=== PATIENT | female | born 1985 | race Caucasian/White ===

== ENCOUNTER 2016-11-22 19:19 | Emergency (ER) | payer OTHER ==
[2016-11-22 19:28] VITALS: BP 119/100
[2016-11-22] MEDS ORDERED: Bupivacaine 0.5% 10 ML SDV INJECT ONE (19:29)
[2016-11-22] MEDS ORDERED: Lidocaine 1% 10 ML MDV INJECT ONE (19:30)
[2016-11-22] MEDS ORDERED: Lidocaine 1% 10 ML MDV ONE (19:36)
[2016-11-22] MEDS ORDERED: cefTRIAXone 1 GM Vial IM ONE (20:29)
[2016-11-22] MEDS ORDERED: LORazepam 2 MG/ML MDV IM ONE (20:30)
--- NOTE | 2016-11-22 20:42 | EDM.PDOC ---
ED HPI GENERAL MEDICAL PROBLEM - General Chief Complaint: Upper Extremity Injury/Pain Stated Complaint: FIBERGLASS UNDER RIGHT THUMB Time Seen by Provider: 11/22/16 19:25 - History of Present Illness INITIAL COMMENTS - FREE TEXT/NARRATIVE: 31-year-old female presents emergency room with a painful swollen right thumb. This started about 5 days ago the patient was doing some body work on a truck and managed to get some fiber glass splinters into her hand she thought she got most of them out she noticed that her thumb started swelling up a couple days later and this is been progressively getting worse the last couple of days. The patient has been reluctant to come in because she does not like needles. Past medical history is unremarkable denies . Tetanus status is unknown. Right Hand Pain Score (Numeric/FACES): 9 - Related Data Allergies Allergy/AdvReac Type Severity Reaction Status Date / Time Sulfa (Sulfonamide Allergy Swelling Verified 11/22/16 19:31 Antibiotics) Home Meds: Home Meds Acetaminophen/HYDROcodone [[place] 325-5 MG] 1 - 2 tab PO Q6H #15 tablet 11/22/16 [Rx] Doxycycline Hyclate 100 mg PO Q12H #20 capsule 11/22/16 [Rx] Past Medical History - Past Health History Medical/Surgical History: Denies Medical/Surgical History Social & Family History - Tobacco Use Smoking Status *Q: Current Every Day Smoker Years of Tobacco use: 10 Packs/Tins Daily: 1 Used Tobacco, but Quit: No Second Hand Smoke Exposure: No - Caffeine Use Caffeine Use: Reports: Soda - Recreational Drug Use Recreational Drug Use: No Review of Systems - Review of Systems Review Of Systems: See Below Constitutional: Reports: No Symptoms Respiratory: Reports: No Symptoms Cardiovascular: Reports: No Symptoms GI/Abdominal: Reports: No Symptoms ED EXAM, GENERAL - Physical Exam Exam: See Below General Appearance: Anxious, Mild Distress (She has some distress from her anxiety) Neck: Normal Inspection, Supple, Non-Tender, Full Range of Motion Respiratory/Chest: No Respiratory Distress, Lungs Clear, Normal Breath Sounds, No Accessory Muscle Use, Chest Non-Tender Cardiovascular: Regular Rate, Rhythm, No Edema, No Murmur Extremities: Other (Examination of her right hand shows a mildly erythematous right thumb the distal portion beyond the interphalangeal joint is quite swollen especially on the palmar surface this has some ecchymosis and some area of fluctuance on it. Neurovascular status appears to be okay but everything hurts) ED TRAUMA EXTREMITY PROCEDURES - I&D Site: R thumb distal palmar aspect Skin Prep: Chlorhexidine (Hibiciens) Local Anesthesia: Lidocaine: 1% Plain Local Anesthesia - Bupivicaine (Marcaine): 0.5% Plain Local Anesthetic Volume: Other (Total 8 mL were used) Area Incised With: 11 Blade Drainage: Purulent, Bloody, Moderate Amount Probed to Break Up Loculations: Yes Sterile Dressing: None (Antibiotic ointment nonstick dressing absorbent gauze) Complications: No Progress/Comments: No complications procedure well after prepping and draping the area in the usual sterile fashion and after ensuring adequate anesthesia 1 cm incision was made vertically on the palmar aspect releasing a moderate amount of exudative material and some bloody exudative material patient felt much better after this. The wound was probed for foreign bodies none identified and was probed to make sure no small loculations of exudative material her left. Patient tolerated the procedure without difficulty. Course - Vital Signs Last Recorded V/S: Last Vital Signs Temp 36.4 C 11/22/16 19:25 Pulse 126 H 11/22/16 19:25 Resp 23 H 11/22/16 19:25 BP 119/100 H 11/22/16 19:25 Pulse Ox 100 11/22/16 19:25 - Orders/Labs/Meds Orders: Active Orders 24 hr Category Date Time Status Fingers Thumb Rt F5 [CR] Stat Exams 11/22/16 19:27 Taken CULTURE WOUND [RM] Stat Lab 11/22/16 20:23 Uncollected cefTRIAXone [Rocephin] 1 gm Med 11/22/16 20:45 Active Lidocaine 1% [Xylocaine 1%] 2.1 ml IM Q24H Medication Orders Ceftriaxone Sodium 1 gm/ (Lidocaine HCl 2.1 ml) 0 gm IM Q24H MARITA Last Admin: 11/22/16 20:43 Dose: 1 inj Meds: Medications Generic Name Dose Route Start Last Admin Trade Name Freq PRN Reason Stop Dose Admin Ceftriaxone Sodium 1 gm/ 0 gm 11/22/16 20:45 11/22/16 20:43 Lidocaine HCl 2.1 ml IM 1 inj Q24H MARITA Administration Discontinued Medications Generic Name Dose Route Start Last Admin Trade Name Freq PRN Reason Stop Dose Admin Bupivacaine HCl 10 ml 11/22/16 19:29 Sensorcaine-Mpf 0.5% INJECT 11/22/16 19:30 ONETIME ONE Ceftriaxone Sodium 1 gm 11/22/16 20:29 Rocephin IM 11/22/16 20:30 ONETIME ONE Lidocaine HCl Confirm 11/22/16 19:36 Xylocaine 1% Administered 11/22/16 19:37 Dose 10 ml .ROUTE .STK-MED ONE Lidocaine HCl 10 ml 11/22/16 19:30 Xylocaine 1% INJECT 11/22/16 19:31 ONETIME ONE Lorazepam 1 mg 11/22/16 20:30 11/22/16 20:43 Ativan IM 11/22/16 20:31 1 mg ONETIME ONE Administration - Re-Assessments/Exams Free Text/Narrative Re-Assessment/Exam: 11/22/16 20:41 Initially the patient had a digital block done with 5 mL of 0.5% Marcaine and 1 % lidocaine both without epinephrine this did help her discomfort. Patient was sent to x-ray where she had done series done she has some distal swelling no obvious foreign body identified. 11/22/16 21:[address] Proctor who will see the patient in the office after I do the I and D here in the emergency room Departure - Departure Time of Disposition: 21:10 Disposition: Home, Self-Care 01 Clinical Impression: Soft tissue abscess of right thumb - Discharge Information Prescriptions: Acetaminophen/HYDROcodone [[place] 325-5 MG] 1 - 2 tab PO Q6H #15 tablet Doxycycline Hyclate 100 mg PO Q12H #20 capsule Referrals: Jared Proctor MD [Physician] - Forms: ED Department Discharge Additional Instructions: Return to the emergency room with any questions problems worsening symptoms. 4 time a day soaks with either Ivory liquid soapy solution or Epsom salts. Clean the wound good during the soaks and gently tried probe with a Q-tip facility so the incision stays open. You been started on an antibiotic this is doxycycline start this tonight one twice daily until they are all gone. Follow up with Dr. Proctor on Tuesday for recheck. - My Orders Last 24 Hours: My Active Orders 11/22/16 19:27 Fingers Thumb Rt F5 [CR] Stat 11/22/16 20:23 CULTURE WOUND [RM] Stat 11/22/16 20:45 cefTRIAXone [Rocephin] 1 gm Lidocaine 1% [Xylocaine 1%] 2.1 ml IM Q24H - Assessment/Plan Last 24 Hours: My Active Orders 11/22/16 19:27 Fingers Thumb Rt F5 [CR] Stat 11/22/16 20:23 CULTURE WOUND [RM] Stat 11/22/16 20:45 cefTRIAXone [Rocephin] 1 gm Lidocaine 1% [Xylocaine 1%] 2.1 ml IM Q24H
[2016-11-22] MEDS ORDERED: cefTRIAXone 1 GM, Lidocaine 1% 2.1 ML IM SCH ×2 (20:45)
--- NOTE | 2016-11-23 07:57 | CR ---
Right thumb: Three views of the right thumb were obtained. No opaque foreign object is seen. No fracture, dislocation or other bony abnormality is appreciated. Impression: 1. Nothing acute is seen on right thumb study. Diagnostic code #1
== END 2016-11-22 21:22 | disposition home or self-care (01) ==
LOC: JD.ED 19:19
DX: L02.511 Cutaneous abscess of right hand (principal); F17.210 Nicotine dependence, cigarettes, uncomplicated; Z88.2 Allergy status to sulfonamides
CPT/HCPCS: 10060; 73140; 87070; 96372; 99284; J0696; J2060; 87077; 87186; 99283-25

== ENCOUNTER 2020-03-03 18:45 | Emergency (ER) | payer SELFPAY ==
[2020-03-03 19:42] VITALS: BP 135/100; PULSE 96
--- NOTE | 2020-03-03 19:48 | EDM.PDOC ---
ED HPI GENERAL MEDICAL PROBLEM - General Chief Complaint: ENT Problem Stated Complaint: TOOTH PAIN Time Seen by Provider: 03/03/20 19:04 - History of Present Illness INITIAL COMMENTS - FREE TEXT/NARRATIVE: 34-year-old female presents the emergency room with dental pain. This is been getting worse over the last several days. Patient volunteers a history of having poor rotten teeth despite taking very good care of them. Despite this there getting worse. She denies fevers or chills. And she agrees to follow-up with a dentist. Left Lower Tooth/Teeth Pain Score (Numeric/FACES): 8 - Related Data Allergies Allergy/AdvReac Type Severity Reaction Status Date / Time Sulfa (Sulfonamide Allergy Swelling Verified 11/22/16 19:31 Antibiotics) Home Meds: Home Meds Acetaminophen/HYDROcodone [[place] 325-5 MG] 1 tab PO Q4H PRN #12 tablet 03/03/20 [Rx] Clindamycin HCl 150 mg PO QID #40 capsule 03/03/20 [Rx] Past Medical History - Past Health History Medical/Surgical History: Denies Medical/Surgical History Social & Family History - Tobacco Use Tobacco Use Status *Q: Current Every Day Tobacco User Years of Tobacco use: 17 Packs/Tins Daily: 0.5 - Caffeine Use Caffeine Use: Reports: Coffee, Energy Drinks, Soda, Tea - Recreational Drug Use Recreational Drug Use: No ED ROS ENT - Review of Systems Review Of Systems: See Below Constitutional: Reports: No Symptoms HEENT: Reports: Dental Pain, Other (no facial swelling) Respiratory: Reports: No Symptoms Cardiovascular: Reports: No Symptoms GI/Abdominal: Reports: No Symptoms ED EXAM, ENT - Physical Exam Exam: See Below Exam Limited By: No Limitations General Appearance: Alert, No Apparent Distress Eye Exam: Bilateral Eye: Normal Inspection Ears: Normal External Exam, Normal Canal, Hearing Grossly Normal, Normal TMs Nose: Normal Inspection, Normal Mucousa, No Blood Mouth/Throat: Normal Inspection, Normal Lips, Normal Oropharynx, Other (L lower tooth behind the incisor is tender mild swelling and rednesss at its base. ) Head: Atraumatic, Normocephalic Neck: Normal Inspection, Supple, Non-Tender, Full Range of Motion. No: Lymphadenopathy (L), Lymphadenopathy (R) Respiratory/Chest: No Respiratory Distress, Lungs Clear, Normal Breath Sounds Cardiovascular: Regular Rate, Rhythm, No Edema, No Murmur Departure - Departure Time of Disposition: 19:52 Disposition: Home, Self-Care 01 Clinical Impression: Pain, dental - Discharge Information Referrals: PCP,Not In Area [Primary Care Provider] - Additional Instructions: Return to the emergency room with any questions problems or worsening symptoms. Take medications as directed. Follow-up with your dentist as soon as you can.
== END 2020-03-03 20:10 | disposition home or self-care (01) ==
LOC: JD.ED 18:45
DX: K08.89 Other specified disorders of teeth and supporting structures (principal); F17.210 Nicotine dependence, cigarettes, uncomplicated; Z88.2 Allergy status to sulfonamides
CPT/HCPCS: 99282

== ENCOUNTER 2021-05-02 02:55 | Inpatient (IN) | payer MEDICAID ==
[2021-05-03] MEDS ORDERED: Sodium Chloride 0.9% 10 ML Syringe FLUSH PRN
[2021-05-03] MEDS ORDERED: Lactated Ringers 1,000 ML IV SCH
[2021-05-03] MEDS ORDERED: Citric Acid/Sodium Citrate Solution 30 ML Cup PO ONE
[2021-05-03] MEDS ORDERED: Metoclopramide 10 MG/2 ML SDV IVPUSH ONE
[2021-05-03] MEDS ORDERED: fentaNYL 100 MCG/2 ML SDV IVPUSH PRN (03:02)
[2021-05-03] MEDS ORDERED: Ondansetron 4 MG/2 ML SDV IVPUSH PRN (03:02)
[2021-05-03] MEDS ORDERED: Dextrose 5%-Lactated Ringers 1,000 ML IV SCH ×2 (04:59→16:00)
[2021-05-03] MEDS ORDERED: Naloxone 0.4 MG/ML SDV IVPUSH PRN (04:59)
[2021-05-03] MEDS ORDERED: ePHEDrine 50 MG/ML SDV IVPUSH PRN (04:59)
[2021-05-03] MEDS ORDERED: Acetaminophen 325 MG Tab PO PRN (04:59)
[2021-05-03] MEDS ORDERED: Sodium Chloride 0.9% 10 ML Syringe FLUSH SCH (09:00)
[2021-05-03] MEDS: Acetaminophen/oxyCODONE 325-5 MG Tab PO PRN ×3 (10:02→23:36)
[2021-05-03] MEDS: Ibuprofen 600 MG Tab PO PRN (23:35)
[2021-05-04] MEDS: Ibuprofen 600 MG Tab PO PRN ×2 (09:13→17:46)
[2021-05-04] MEDS: Acetaminophen/oxyCODONE 325-5 MG Tab PO PRN ×3 (09:14→22:38)
[2021-05-04] MEDS ORDERED: Melatonin 3 MG Tab PO PRN (21:50)
[2021-05-04] MEDS ORDERED: Nicotine 21 MG/24 Hr Patch TRDERM PRN (21:52)
[2021-05-04] MEDS: Docusate Sodium 100 MG Cap PO PRN (22:38)
[2021-05-05] MEDS: Ibuprofen 600 MG Tab PO PRN (06:32)
[2021-05-05] MEDS: Acetaminophen/oxyCODONE 325-5 MG Tab PO PRN ×2 (06:32→10:32)
[2021-05-05] MEDS: Docusate Sodium 100 MG Cap PO PRN (07:59)
[2021-05-05 08:13] VITALS: BP 118/82; PULSE 71
== END 2021-05-05 12:30 | disposition home or self-care (01) | DRG 788 ==
LOC: JD.OB 02:55 → OBSVTOIN 05-03 02:55
PROVIDERS: ADMIT Obstetrics & Gynecology; ATTEND Obstetrics & Gynecology
PROC: 10D00Z1 Extraction of Products of Conception, Low, Open Approach (ICD-10-PCS; principal; 2021-05-03)
DX: O48.0 Post-term pregnancy (principal); O99.344 Other mental disorders complicating childbirth; F32.A Depression, unspecified; O99.52 Diseases of the respiratory system complicating childbirth; J45.909 Unspecified asthma, uncomplicated; O77.0 Labor and delivery complicated by meconium in amniotic fluid; Z20.822 Contact with and (suspected) exposure to COVID-19; Z88.2 Allergy status to sulfonamides; Z88.5 Allergy status to narcotic agent; Z86.16 Personal history of COVID-19; Z37.0 Single live birth; Z3A.40 40 weeks gestation of pregnancy
CPT/HCPCS: 01961; 36415; 59025; 80306; 81001; 85025; 85027; 86592; 86850; 86900; 86901; 94762; A9270-GY; J2765; J7120; J7121; U0002

== ENCOUNTER 2023-11-25 05:42 | Inpatient (IN) | payer MEDICAID ==
[~2023-11-25 05:42] MED LIST: Lactated Ringers 1,000 ML IV SCH; Sodium Chloride 0.9% 10 ML Syringe FLUSH PRN; Sodium Chloride 0.9% 10 ML Syringe FLUSH SCH
[2023-11-25] MEDS ORDERED: Ketorolac 30 MG/ML SDV ONE (06:52)
[2023-11-25] MEDS ORDERED: Lactated Ringers 1,000 ML ONE (06:52)
[2023-11-25] MEDS ORDERED: ceFAZolin 2 GM Vial ONE (06:52)
[2023-11-25] MEDS ORDERED: Morphine PF 10 MG/10 ML SDV ONE (06:52)
[2023-11-25] MEDS ORDERED: Ondansetron 4 MG/2 ML SDV ONE (06:52)
[2023-11-25] MEDS ORDERED: Meperidine 50 MG/ML Vial IVPUSH PRN (07:13)
[2023-11-25] MEDS ORDERED: fentaNYL 100 MCG/2 ML SDV IVPUSH PRN (07:13)
[2023-11-25] MEDS ORDERED: Ondansetron 4 MG/2 ML SDV IVPUSH PRN (07:13)
[2023-11-25] MEDS ORDERED: Oxytocin/0.9 % Sodium Chloride 30 UNIT/500 ML BAG IV SCH (07:15)
[2023-11-25] MEDS: Lactated Ringers 1,000 ML IV SCH (07:17)
[2023-11-25] MEDS: Citric Acid/Sodium Citrate Solution 30 ML Cup PO ONE (07:18)
[2023-11-25] MEDS: Metoclopramide 10 MG/2 ML SDV IVPUSH ONE (07:18)
[2023-11-25] MEDS ORDERED: Phenylephrine 1% 10 MG/ML SDV ONE (07:41)
[2023-11-25] MEDS ORDERED: ePHEDrine 50 MG/ML SDV ONE (07:42)
[2023-11-25] MEDS: Bupivacaine 0.5% 30 ML SDV ONE (07:49)
[2023-11-25 09:04] LABS: BASOPHILS ABSOLUTE AUTO 0.1 K/mm3 (0.0-0.2); BASOPHILS PERCENT AUTO 0.6 % (0.0-1.0); EOSINOPHILS ABSOLUTE AUTO 0.3 K/mm3 (0.0-0.4); EOSINOPHILS PERCENT AUTO 1.9 % (0.0-6.0); HEMATOCRIT 33.2 % (37.0-47.0); IMMATURE GRAN ABSOLUTE AUTO 0.57 K/mm3 (0.00-0.05); IMMATURE GRAN PERCENT AUTO 3.7 % (0.0-0.4); LYMPHOCYTES ABSOLUTE AUTO 2.5 K/mm3 (1.0-4.8); LYMPHOCYTES PERCENT AUTO 15.7 % (24.0-44.0); MEAN CORPUSCULAR HEMOGLOBIN 28.4 pg (28.0-32.0); MEAN CORPUSCULAR HGB CONC 33.1 g/dl (32.0-36.0); MEAN CORPUSCULAR VOLUME 85.8 fl (83.0-99.0); MEAN PLATELET VOLUME 10.1 fl (9.4-12.3); MONOCYTES ABSOLUTE AUTO 1.3 K/mm3 (0.0-0.8); MONOCYTES PERCENT AUTO 8.3 % (0.0-8.0); NEUTROPHILS ABSOLUTE AUTO 10.9 K/mm3 (1.8-7.7); NEUTROPHILS PERCENT AUTO 69.8 % (41.0-71.0); PLATELET COUNT,PLT 269 K/mm3 (150-400); RED BLOOD CELL COUNT 3.87 M/mm3 (4.10-5.30); WHITE BLOOD CELL COUNT,WBC 15.58 K/mm3 (3.9-11.3)
[2023-11-25 09:32] LABS: SLIDE REVIEW ABNORMAL SMEAR
[2023-11-25] MEDS: Metoclopramide 10 MG/2 ML SDV IM ONE (12:54)
[2023-11-25] MEDS: Ketorolac 30 MG/ML SDV IVPUSH ONE (13:54)
[2023-11-25] MEDS: Dextrose 5%-Lactated Ringers 1,000 ML IV SCH (13:55)
[2023-11-25] MEDS ORDERED: Acetaminophen/oxyCODONE 325-5 MG Tab PO PRN (14:16)
[2023-11-25] MEDS ORDERED: Ondansetron 4 MG/2 ML SDV IV PRN (14:16)
[2023-11-25] MEDS ORDERED: Naloxone 0.4 MG/ML SDV IVPUSH PRN (14:16)
[2023-11-25] MEDS ORDERED: ePHEDrine 50 MG/ML SDV IVPUSH PRN (14:16)
[2023-11-25] MEDS: Acetaminophen/oxyCODONE 325-5 MG Tab PO PRN (16:54)
[2023-11-25] MEDS: Ketorolac 30 MG/ML SDV IVPUSH SCH (20:57)
[2023-11-25] MEDS: Simethicone 80 MG Tab.Chew PO PRN (23:57)
[2023-11-25] MEDS: Nicotine 14 MG/24 Hr Patch TRDERM SCH (23:57)
[2023-11-26] MEDS: Docusate Sodium 100 MG Cap PO PRN (04:43)
[2023-11-26 06:14] LABS: HEMATOCRIT 26.8 % (37.0-47.0); MEAN CORPUSCULAR HEMOGLOBIN 29.1 pg (28.0-32.0); MEAN CORPUSCULAR VOLUME 85.6 fl (83.0-99.0); PLATELET COUNT,PLT 258 K/mm3 (150-400); RED BLOOD CELL COUNT 3.13 M/mm3 (4.10-5.30); WHITE BLOOD CELL COUNT,WBC 14.62 K/mm3 (3.9-11.3)
[2023-11-26 06:19] LABS: HEMOGLOBIN 9.1 gm/dl (12.0-16.0)
[2023-11-26] MEDS: HYDROmorphone 2 MG Tab PO PRN (08:35)
[2023-11-26] MEDS: Ibuprofen 600 MG Tab PO SCH (15:52)
[2023-11-26] MEDS: Nicotine 14 MG/24 Hr Patch TRDERM SCH (20:10)
[2023-11-28] MEDS: Ibuprofen 600 MG Tab PO SCH (05:28)
[2023-11-28] MEDS ORDERED: Magnesium Hydroxide 400 MG/5 ML Susp 30 ML Cup PO ONE (08:30)
[2023-11-28 08:57] VITALS: BP 135/87; PULSE 68
== END 2023-11-28 10:45 | disposition home or self-care (01) | DRG 788 ==
LOC: JD.OB 05:42
PROVIDERS: ADMIT Obstetrics & Gynecology; ATTEND Obstetrics & Gynecology
PROC: 10D00Z1 Extraction of Products of Conception, Low, Open Approach (ICD-10-PCS; principal; 2023-11-25 07:30)
DX: O34.211 Maternal care for low transverse scar from previous cesarean delivery (principal); Z3A.38 38 weeks gestation of pregnancy; Z37.0 Single live birth; Z86.16 Personal history of COVID-19; Z90.89 Acquired absence of other organs; Z88.2 Allergy status to sulfonamides; Z88.5 Allergy status to narcotic agent
CPT/HCPCS: 01961; 36415; 59025; 85025; 85027; 86592; 86850; 86900; 86901; 94762; A9270-GY; J0665; J0690; J1885; J2274; J2371; J2405; J2765; J3490; J7120; J7121; J7999